=== PATIENT | male | born 1990 | race Caucasian/White ===

== ENCOUNTER → 2024-08-12 | Outpatient (CLI) | payer MEDICARE, MEDICAID, SELFPAY ==
--- NOTE | 2024-08-12 12:05 | RAD_ITS ---
PROCEDURE: LUMBAR SPINE 2 OR 3 VIEWS 08/12/2024 REASON FOR EXAM: LUMBAR SPONDYLOSIS TECHNIQUE: LUMBAR SPINE 2 OR 3 VIEWS COMPARISON: None. FINDINGS: Unremarkable sacral metallic screws. Dextroscoliosis apex at L3. Staghorn calculus of the left kidney. Exaggerated lumbar lordosis. T12-L1: Normal disc height. Normal endplates. Normal alignment of the vertebrae. L1-2: Normal disc height. Normal endplates. Normal alignment of the vertebrae. L2-3: Normal disc height. Normal endplates. Normal alignment of the vertebrae. L3-4: Normal disc height. Normal endplates. Normal alignment of the vertebrae. L4-5: Normal disc height. Normal endplates. Normal alignment of the vertebrae. L5-S1: Normal disc height. Normal endplates. Normal alignment of the vertebrae. The soft tissue structures are unremarkable. RAD/Lumbar Spine 2 or 3 Views IMPRESSION: Exaggerated lumbar lordosis. Staghorn calculus of the left kidney. Dextroscoliosis apex at L3. Unremarkable sacral metallic screws. [facility]
== END | disposition home or self-care (01) ==
PROVIDERS: Referring Provider Anesthesiology; Visit Provider Anesthesiology
DX: M47.816 Spondylosis without myelopathy or radiculopathy, lumbar region (principal)
CPT/HCPCS: 72100

== ENCOUNTER → 2024-09-26 | Outpatient (CLI) | payer MEDICARE, MEDICAID, SELFPAY | END | disposition home or self-care (01) | PROVIDERS: Referring Provider Anesthesiology; Visit Provider Anesthesiology | DX: M47.816 Spondylosis without myelopathy or radiculopathy, lumbar region (principal) | CPT/HCPCS: 72148 ==